=== PATIENT | male | born 1960 | race Two or more races ===

== ENCOUNTER 2025-04-27 08:25 | Emergency (ER) | payer OTHER ==
[~2025-04-27] VITALS: Ht 182.9 cm; Wt 93.4 kg
[2025-04-27] MEDS ORDERED: ATORVASTATIN CA10 MG PO (08:33)
[2025-04-27] MEDS ORDERED: LEVOTHYROXINE25 MCG PO (08:33)
[2025-04-27 10:27] LABS: BASO % 0.8 % (0.1-1.2); EOS # 0.24 (0.04-0.54); EOS % 3.4 % (0.7-7.0); LYMPH # 0.81 (1.18-3.74); LYMPH % 11.4 % (19.3-53.1); MEAN PLATELET VOLUME 10.60 fl (9.4-12.4); MONO # 0.54 (0.24-0.82); MONO % 7.6 % (4.7-12.5); NEUT # 5.39 (1.56-6.13); NEUT % 76.2 % (34.0-71.1); RED CELL DISTRIBUTION WIDTH 11.9 % (11.6-14.4)
[2025-04-27 10:52] LABS: COVID-19 AG NEGATIVE (NEGATIVE)
[2025-04-27] MEDS ORDERED: ACETAMINOPHEN500 M1 PO (11:37)
[2025-04-27] MEDS ORDERED: GILTUSS COUGH-118 M1 PO (11:37)
[2025-04-27] MEDS ORDERED: ZITHROMAX TRI-500 MG PO (11:37)
== END 2025-04-27 11:40 | disposition home or self-care (01) ==
LOC: ER 08:25
PROVIDERS: Preventive Medicine Public Health & General Preventive Medicine
DX: J06.9 Acute upper respiratory infection, unspecified (principal); R50.9 Fever, unspecified; Z20.822 Contact with and (suspected) exposure to COVID-19; Z88.0 Allergy status to penicillin; Z88.6 Allergy status to analgesic agent